=== PATIENT | female | born 1940 | race Caucasian/White ===

== ENCOUNTER 2019-11-28 22:55 | Emergency (ER) | payer MEDICARE, OTHER ==
[~2019-11-28] VITALS: Ht 160 cm; Wt 63.5 kg
[~2019-11-28 22:55] MED LIST: AMLODIPINE BESYL5 MG PO; ASPIRIN EC325 MG PO; CALCIUM 600 +1 EAC6 PO; CLONIDINE HCL0.1 MG PO; DAILY MULTIPLE1 EACH PO; DIPHENHYDRAMINE25 MG PO; FISH OIL 1,0001 EAC2 PO; KEFLEX500 MG PO; LEVOTHYROXINE50 MCG PO; MIRALAX17 GM PO; MYRBETRIQ50 MG PO; OCUVITE TABLET1 EAC1 PO; PRAVASTATIN SOD10 MG PO; RANITIDINE HCL150 MG PO; TELMISARTAN-HC1 EACH PO; TRAZODONE HCL50 MG PO; VITAMIN C500 M1 PO; VITAMIN D-32000 UNIT PO; VITAMIN D1000 UNIT PO
[2019-11-29] MEDS ORDERED: KEFLEX500 MG PO (01:03)
== END 2019-11-29 01:24 | disposition home or self-care (01) ==
LOC: ED 22:55
DX: N39.0 Urinary tract infection, site not specified (principal); E03.9 Hypothyroidism, unspecified; I10 Essential (primary) hypertension; K21.9 Gastro-esophageal reflux disease without esophagitis; Z87.891 Personal history of nicotine dependence; Z88.5 Allergy status to narcotic agent; Z88.8 Allergy status to other drugs, medicaments and biological substances
CPT/HCPCS: 81001; 99283; A9270

== ENCOUNTER 2020-12-23 23:46 | Emergency (ER) | payer MEDICARE, OTHER ==
[~2020-12-23] VITALS: Ht 160 cm; Wt 67.5 kg
[~2020-12-23 23:46] MED LIST changes: +VITAMIN D-40010 MCG; -VITAMIN D1000 UNIT PO
[2020-12-24] MEDS ORDERED: MEMANTINE HCL10 MG PO (00:49)
[2020-12-24] MEDS ORDERED: ARICEPT10 MG (00:50)
[2020-12-24] MEDS ORDERED: IBANDRONATE SO150 MG PO (00:51)
[2020-12-24] MEDS ORDERED: ZOFRAN4 MG PO (04:01)
[2020-12-24] MEDS ORDERED: POTASSIUM CHLO10 MEQ PO (04:01)
[2020-12-24] MEDS ORDERED: HYDROCODON-ACE1 EA10 PO (04:01)
--- NOTE | 2020-12-24 13:09 | EKG ---
[facility] [address] [facility] [place] [address] Signed Sinus bradycardia with 1st degree AV block with premature atrial complexes Nonspecific intraventricular conduction delay Nonspecific ST and T wave abnormality Abnormal ECG No previous ECGs available Confirmed by GABY AGUILAR MD ([id number]) on 12/24/2020 1:08:55 PM Electronically Signed By: GABY AGUILAR MD 12/24/20 1309 PATIENT NAME: ROBERTHDOROTHY PIPER Electrocardiogram DATE OF : 40 PHYSICIAN: GABY AGUILAR MD REPORT #: [id number] REPORT IS CONFIDENTIAL AND NOT TO BE RELEASED WITHOUT AUTHORIZATION
== END 2020-12-24 06:10 | disposition home or self-care (01) ==
LOC: ED 23:46
DX: M54.2 Cervicalgia (principal); R00.1 Bradycardia, unspecified; E87.6 Hypokalemia; E03.9 Hypothyroidism, unspecified; I10 Essential (primary) hypertension; K21.9 Gastro-esophageal reflux disease without esophagitis; Z87.891 Personal history of nicotine dependence; Z88.5 Allergy status to narcotic agent; Z88.1 Allergy status to other antibiotic agents; Z88.8 Allergy status to other drugs, medicaments and biological substances; Z79.899 Other long term (current) drug therapy
CPT/HCPCS: 70450; 70496; 80053; 84484; 85025; 85610; 85730; 93005; 93010; 99284-25; J1170; J2405; J2765; J3480

== ENCOUNTER 2021-11-23 17:28 | Emergency (ER) | payer OTHER, MEDICARE ==
[~2021-11-23] VITALS: Ht 160 cm; Wt 67.1 kg
[~2021-11-23 17:28] MED LIST changes: +ARICEPT10 MG; +HYDROCODON-ACE1 EA10 PO; +IBANDRONATE SO150 MG PO; +MEMANTINE HCL10 MG PO; +POTASSIUM CHLO10 MEQ PO; +ZOFRAN4 MG PO
[2021-11-23] MEDS ORDERED: FOSAMAX70 MG PO (17:50)
--- NOTE | 2021-11-25 14:50 | EKG ---
[facility] [address] [place] [address] Signed Normal sinus rhythm with sinus arrhythmia Minimal voltage criteria for LVH, may be normal variant ( R in aVL ) Borderline ECG When compared with ECG of 24-DEC-2020 00:20, premature atrial complexes are no longer present NE interval has decreased Nonspecific T wave abnormality no longer evident in Anterolateral leads Confirmed by GABY AGUILAR MD ([id number]) on 11/25/2021 2:49:54 PM Electronically Signed By: GABY AGUILAR MD 11/25/21 1450 PATIENT NAME: DOROTHY LEPE Electrocardiogram DATE OF : 40 PHYSICIAN: GABY AGUILAR MD REPORT #: [id number] REPORT IS CONFIDENTIAL AND NOT TO BE RELEASED WITHOUT AUTHORIZATION
== END 2021-11-23 19:25 | disposition home or self-care (01) ==
LOC: ED 17:28
DX: S01.01XA Laceration without foreign body of scalp, initial encounter (principal); I10 Essential (primary) hypertension; E03.9 Hypothyroidism, unspecified; F03.90 Unspecified dementia, unspecified severity, without behavioral disturbance, psychotic disturbance, mood disturbance, and anxiety; Z87.891 Personal history of nicotine dependence; Z88.1 Allergy status to other antibiotic agents; Z88.5 Allergy status to narcotic agent; Z88.8 Allergy status to other drugs, medicaments and biological substances; W19.XXXA Unspecified fall, initial encounter; Y92.9 Unspecified place or not applicable
CPT/HCPCS: 12001; 36415; 70450; 72125; 80053; 85025; 93005; 93010; 99284-25